=== PATIENT | male | born 1955 | race Caucasian/White ===

== ENCOUNTER 2019-12-30 02:50 | Emergency (ER) | payer OTHER ==
[~2019-12-30] VITALS: Ht 167.6 cm; Wt 63.5 kg
[~2019-12-30 02:50] MED LIST: AMOXICILLIN 50500 MG PO; BUSPIRONE HCL10 MG; CELEXA10 MG PO; DILANTIN100 MG; GABAPENTIN 100100 MG; GABAPENTIN 100100 MG PO; HYDROCODONE-AP1 EAC6; LIORESAL 10 MG10 MG; NORCO 10-325 T1 EACH; PHENYTOIN SODI100 M3; PLAVIX 75 MG TA75 M1 PO; UNICOMPLEX M TA1 TA1 PO; XALATAN2.5 ML OPHTHALMIC; ZOFRAN ODT4 MG PO
[2019-12-30] MEDS ORDERED: TYLENOL WITH CO1 TA1 PO (03:15)
[2019-12-30] MEDS ORDERED: ACULAR 0.5% EYE5 ML RT. EYE (03:16)
[2019-12-30] MEDS ORDERED: ALPHAGAN P5 ML EA. EYE (03:17)
[2019-12-30] MEDS ORDERED: VITAMIN C500 M2 PO (03:18)
[2019-12-30] MEDS ORDERED: DECARA1250 MCG PO (03:19)
[2019-12-30] MEDS ORDERED: BACLOFEN 10MG T10 MG PO (03:19)
[2019-12-30] MEDS ORDERED: COSOPT OCUMETER10 M1 EA. EYE (03:21)
[2019-12-30] MEDS ORDERED: FLOMAX0.4 MG PO (03:22)
[2019-12-30] MEDS ORDERED: MILK OF MA400 MG/5 M PO (03:24)
[2019-12-30] MEDS ORDERED: OXYBUTYNIN 5 MG5 M2 PO (03:25)
[2019-12-30] MEDS ORDERED: PHENYTEK300 MG PO (03:26)
[2019-12-30] MEDS ORDERED: PLAVIX 75 MG TA75 MG PO (03:27)
[2019-12-30] MEDS ORDERED: PRED FORTE 1% EY5 M1 RT. EYE (03:28)
[2019-12-30] MEDS ORDERED: MYSOLINE50 MG PO (03:30)
[2019-12-30] MEDS ORDERED: RA SENNA PLUS1 EACH PO (03:31)
[2019-12-30] MEDS ORDERED: ZOCOR 10 MG TAB10 MG PO (03:32)
[2019-12-30] MEDS ORDERED: ZANAFLEX2 M1 PO (03:32)
[2019-12-30] MEDS ORDERED: TOPROL XL25 MG PO (03:33)
[2019-12-30 03:34] LABS: HEMATOCRIT 39.1 % (42.0-52.0); HEMOGLOBIN 13.5 gm/dL (14.0-18.0); MCH 32.8 pg (26.0-34.0); MCHC 34.6 g/dL (28.0-37.0); MCV 94.8 fL (80.0-100.0); PLATELET COUNT 283 thou/uL (150-400); RBC 4.12 mil/uL (4.50-6.00); RDW 13.6 % (10.5-14.5); WBC 4.9 thou/uL (4.0-11.0)
[2019-12-30] MEDS ORDERED: ACETAMINOPHEN PO (03:35)
[2019-12-30 03:39] LABS: CALCIUM 8.9 mg/dL (8.5-10.1); CREATININE 1.3 mg/dL (0.7-1.3); POTASSIUM 3.9 mmol/L (3.5-5.1)
[2019-12-30 03:45] LABS: ALBUMIN 3.4 g/dL (3.4-5.0); TOTAL BILIRUBIN 0.3 mg/dL (0.2-1.0)
[2019-12-30 04:24] LABS: ABSOLUTE NEUTROPHILS 2.1 thou/uL (1.4-8.2); PLATELET ESTIMATE NORMAL
[2019-12-30 04:31] LABS: URINE BILIRUBIN NEGATIVE (Negative); URINE BLOOD TRACE (Negative); URINE CLARITY CLEAR; URINE COLOR YELLOW; URINE GLUCOSE-RANDOM* NEGATIVE (Negative); URINE KETONES NEGATIVE (Negative); URINE LEUKOCYTES-REFLEX NEGATIVE (Negative); URINE NITRITE-REFLEX NEGATIVE (Negative); URINE PROTEIN (DIPSTICK) NEGATIVE (Negative); URINE UROBILINOGEN 0.2 E.U./dl (0.2-1.0)
[2019-12-30 05:37] VITALS: BP 135/76
--- NOTE | 2019-12-30 15:28 | EKG ---
[facility] [place] [address] ELECTROCARDIOGRAM REPORT Name: NASH JAIN Room #: DEP [facility]#: [id number] Admission: 12/30/19 Attend Phys: Discharge: 12/30/19 Date of : 55 Report #: [id number] THIS REPORT FOR: cc: Issac Aponte MD, Ramilo MD Lundgren,Slava Linares MD [facility] THIS REPORT FOR: //name// [facility] ED Test Date: 2019-12-30 Test Time: 02:55:37 Pat Name: NASH JAIN Department: Room: Gender: Flotation Tender: NICHOLAS : 1955 Requested By: Isiah Walker Order Number: [id number] MD: Slava Joel Measurements Intervals [place] Rate: 69 P: 24 HI: 157 QRS: -16 QRSD: 87 T: 48 QT: 395 QTc: 423 Interpretive Statements Sinus rhythm Borderline left axis deviation No previous ECG available for comparison Electronically Signed On 12-30-2019 15:28:35 CDT by Slava Joel [email or web address] <ELECTRONICALLY SIGNED> By: Slava Joel MD, [facility] 12/30/19 1528 [id number] [id number] Slava Joel MD, [facility] /EPI
== END 2019-12-30 05:38 ==
LOC: ER 02:50
PROVIDERS: Emergency Medicine
DX: R50.9 Fever, unspecified (principal); Z79.899 Other long term (current) drug therapy; Z20.828 Contact with and (suspected) exposure to other viral communicable diseases